=== PATIENT | male | born 1965 | race Caucasian/White ===

== ENCOUNTER 2021-07-06 15:02 | Day surgery (SDCO) | payer OTHER ==
[~2021-07-06] VITALS: Ht 175.3 cm; Wt 115.4 kg
[~2021-07-06 15:02] MED LIST: ACCOLATE20 MG PO; ACTOS45 MG PO; AMITRIPTYLINE 225 MG PO; ASPIRIN CHEWABL81 MG PO; ASPIRIN EC81 MG PO; BACTRIM DS TAB1 EACH PO; BASAGLAR K100 UNIT/1 SC; BIAXIN500 MG PO; BUMEX1 MG PO; BYDUREON P2 MG/0.65 SC; CALCITRATE200 MG PO; CARDIZEM CD120 MG PO; CARTIA XT120 MG PO; CEFDINIR300 MG PO; CLARITIN10 MG PO; COZAAR50 MG PO; CYMBALTA60 MG PO; DULERA 200 MCG8.8 GM INH; DUONEB 2.5-0.5M1 AMP INH; ELIQUIS5 MG PO; FEOSOL325 MG PO; GLIPIZIDE XL10 MG PO; HCTZ12.5 MG PO; HUMALOG100 UNIT/1 SQ; HYDRALAZINE25 MG PO; INSULIN LI100 UNIT/2 SC; LANTUS **100 UNITS/ SC; LASIX40 MG PO; LEVAQUIN500 MG PO; LEVAQUIN750 MG PO; LEVEMIR100 UNIT/1 SQ; LIPITOR20 MG PO; LISINOPRIL 20MG20 MG PO; LOPRESSOR50 MG PO; MAG-OXIDE 400M400 MG PO; METFORMIN HCL500 MG PO; MICRO-K10 MEQ PO; MUCINEX1200 MG PO; NEURONTIN300 MG PO; NEURONTIN400 MG PO; NORCO 5-325 TA1 EACH PO; NORVASC5 MG PO; NYSTATIN SUSP1 ML/ML PO; NYSTATIN SUSP1 ML/ML SSW; OMEPRAZOLE40 MG PO; PEPCID AC20 MG PO; PREDNISONE 20MG20 MG PO; PREDNISONE5 MG PO; PRILOSEC20 MG PO; RIFAMPIN PO; SINGULAIR10 MG PO; SYMBICORT 1601 PUFFS INH; SYMBICORT 80-10.2 GM NEB; TRAZODONE 100M100 MG PO; TRAZODONE 50MG50 MG PO; UROCIT-K10 MEQ PO; VENTOLIN HFA IN18 GM INH; VIBRAMYCIN100 M1 PO; VICODIN 10/3251 EACH PO; XARELTO15 MG PO; ZESTRIL5 MG PO; ZITHROMAX250 MG PO; ZOFRAN8 MG PO
[2021-07-06 16:26] LABS: BASOPHIL 0.3 % (0-2); EOSINOPHIL 1.7 % (0-5); HCT 34.9 % (42.0-52.0); HGB 10.9 g/dl (13.2-18.0); LYMPHOCYTE 16.2 % (15-48); MCH 27.5 pg (25.0-31.0); MCHC 31.2 g/dL (32.0-36.0); MCV 88.1 fL (78.0-100.0); MONOCYTE 9.8 % (0-12); MPV 9.4 fL (6.0-9.5); NEUTROPHIL 71.5 % (41-80); NRBC 0; PLT 315 K/uL (150-400); RBC 3.96 M/uL (4.70-6.00); RDW 13.3 % (11.5-14.0); WBC 12.7 K/uL (4.0-10.5)
[2021-07-06 16:49] LABS: BUN/CREAT RATIO (CALC) 21.1 RATIO; CREATININE 1.9 mg/dL (0.67-1.17); POTASSIUM 4.5 mmol/L (3.5-5.1)
[2021-07-06] MEDS ORDERED: NEURONTIN300 MG PO (22:14)
[2021-07-06] MEDS ORDERED: CYMBALTA 30MG C30 MG PO (22:17)
[2021-07-06] MEDS ORDERED: COLACE100 MG PO (22:18)
[2021-07-07 03:39] LABS: BILIRUBIN NEGATIVE (NEGATIVE); BLOOD TRACE-INTACT Ery/uL (NEGATIVE); CLARITY CLEAR (CLEAR); COLOR YELLOW (YELLOW); GLUCOSE (U) 3+ mg/dL (NORMAL); LEUKOCYTES NEGATIVE Leu/uL (NEGATIVE); NITRITE NEGATIVE (NEGATIVE); PROTEIN 2+ mg/dL (NEGATIVE); SPECIFIC GRAVITY 1.015 (1.001-1.030); UROBILINOGEN 0.2 mg/dL (0.2-1.0); pH 5.5 (5.0-9.0)
[2021-07-07 03:49] LABS: BACTERIA TRACE; URINARY WBC RARE
[2021-07-07 05:27] LABS: BASOPHIL 0 % (0-2); EOSINOPHIL 0 % (0-5); HGB 10.2 g/dl (13.2-18.0); LYMPHOCYTE 10.2 % (15-48); MCH 27.9 pg (25.0-31.0); MCHC 31.9 g/dL (32.0-36.0); MCV 87.7 fL (78.0-100.0); MONOCYTE 3.9 % (0-12); MPV 9.2 fL (6.0-9.5); NEUTROPHIL 85.4 % (41-80); NRBC 0; PLT 275 K/uL (150-400); RBC 3.65 M/uL (4.70-6.00); RDW 13.2 % (11.5-14.0); WBC 7.6 K/uL (4.0-10.5)
[2021-07-07 06:17] LABS: ALBUMIN 2.4 g/dL (3.4-5.0); BILIRUBIN - TOTAL 0.2 mg/dL (0.2-1.0); BUN/CREAT RATIO (CALC) 24.1 RATIO; CREATININE 1.66 mg/dL (0.67-1.17); GLOBULIN (CALCULATION) 5.2 g/dL; MAGNESIUM 2.1 mg/dL (1.8-2.4); PHOSPHORUS 3.1 mg/dL (2.6-4.7); POTASSIUM 4.3 mmol/L (3.5-5.1); TOTAL PROTEIN 7.6 g/dL (6.4-8.2)
[2021-07-07 09:41] LABS: IRON % SATURATION 9.1 %SAT (20-50)
[2021-07-07 09:44] LABS: RETICULOCYTE COUNT 1.4 % (1.0-2.0)
[2021-07-07 10:15] LABS: FOLIC ACID (SERUM) 60.2 ng/mL (8.6-58.9)
--- NOTE | 2021-07-07 11:31 | NUR ---
TRANSFERRED BY WHEELCHAIR TO ROOM 217. REPORT GIVEN TO
--- NOTE | 2021-07-07 17:03 | NUR ---
07/07/21 Mr. Vidal lives at home with his spouse. He has home 02 at 2 , rw, wc, 3in1, and s. chair. Ms. Vidal believes they are knowledgeable of diabetic management and are not in need of diabetic education / support in the community.
[2021-07-08 06:02] LABS: BASOPHIL 0 % (0-2); EOSINOPHIL 0 % (0-5); HGB 10.7 g/dl (13.2-18.0); LYMPHOCYTE 24.9 % (15-48); MCH 27.6 pg (25.0-31.0); MCHC 32.4 g/dL (32.0-36.0); MCV 85.3 fL (78.0-100.0); MPV 9.1 fL (6.0-9.5); NEUTROPHIL 62.8 % (41-80); NRBC 0; PLT 318 K/uL (150-400); RBC 3.87 M/uL (4.70-6.00); RDW 13.2 % (11.5-14.0); WBC 6.8 K/uL (4.0-10.5)
[2021-07-08 06:26] LABS: BUN/CREAT RATIO (CALC) 24.8 RATIO; CREATININE 1.65 mg/dL (0.67-1.17); MAGNESIUM 2.2 mg/dL (1.8-2.4); POTASSIUM 4.1 mmol/L (3.5-5.1)
[2021-07-08] MEDS ORDERED: POLY-IRON150 MG PO (16:24)
[2021-07-08] MEDS ORDERED: ELIQUIS5 MG PO (16:44)
== END 2021-07-08 17:04 | disposition home or self-care (01) ==
LOC: FER 15:02 → FMS 17:27 → FICU 17:27 → FMS 07-07 09:21
PROVIDERS: Internal Medicine; Nurse Practitioner; Nurse Practitioner Family; ADMIT Internal Medicine
DX: U07.1 COVID-19 (principal); J12.82 Pneumonia due to coronavirus disease 2019; J47.0 Bronchiectasis with acute lower respiratory infection; J96.21 Acute and chronic respiratory failure with hypoxia; J96.22 Acute and chronic respiratory failure with hypercapnia; G47.30 Sleep apnea, unspecified; I13.0 Hypertensive heart and chronic kidney disease with heart failure and stage 1 through stage 4 chronic kidney disease, or unspecified chronic kidney disease; E11.22 Type 2 diabetes mellitus with diabetic chronic kidney disease; I50.32 Chronic diastolic (congestive) heart failure; N18.30 Chronic kidney disease, stage 3 unspecified; N17.9 Acute kidney failure, unspecified; D50.9 Iron deficiency anemia, unspecified; I48.91 Unspecified atrial fibrillation; E11.40 Type 2 diabetes mellitus with diabetic neuropathy, unspecified; I82.411 Acute embolism and thrombosis of right femoral vein; E66.9 Obesity, unspecified; Z68.37 Body mass index [BMI] 37.0-37.9, adult; Z86.711 Personal history of pulmonary embolism; Z87.891 Personal history of nicotine dependence; Z79.01 Long term (current) use of anticoagulants; Z79.4 Long term (current) use of insulin; Z79.82 Long term (current) use of aspirin; Z79.899 Other long term (current) drug therapy; Z88.8 Allergy status to other drugs, medicaments and biological substances; Z99.81 Dependence on supplemental oxygen
CPT/HCPCS: 36415; 36600; 71045; 71250; 80048; 80053; 81001; 82607; 82728; 82746; 82803; 82962; 83036; 83540; 83550; 83605; 83615; 83735; 83880; 84100; 84145; 85025; 85379; 86140; 93970; 94010; 94640; 94664; 94667; 94668; C9113; C9399; G0378; J1100; J1815; J7030; J7050; U0002

== ENCOUNTER 2021-09-07 18:24 | Emergency (ER) | payer OTHER ==
[~2021-09-07] VITALS: Ht 175.3 cm; Wt 115.2 kg
[~2021-09-07 18:24] MED LIST changes: +COLACE100 MG PO; +CYMBALTA 30MG C30 MG PO; +POLY-IRON150 MG PO
[2021-09-07 20:35] LABS: BASOPHIL 0.5 % (0-2); EOSINOPHIL 1.1 % (0-5); HCT 30.6 % (42.0-52.0); HGB 9.5 g/dl (13.2-18.0); LYMPHOCYTE 11.4 % (15-48); MCH 28.3 pg (25.0-31.0); MCV 91.1 fL (78.0-100.0); MONOCYTE 8.2 % (0-12); MPV 8.9 fL (6.0-9.5); NEUTROPHIL 78.5 % (41-80); NRBC 0; PLT 411 K/uL (150-400); RBC 3.36 M/uL (4.70-6.00); RDW 13.5 % (11.5-14.0)
[2021-09-07 20:36] LABS: WBC 19.7 K/uL (4.0-10.5)
[2021-09-07 20:55] LABS: INR 1.26 (0.9-1.2); PROTHROMBIN TIME 15.1 SECONDS (11.8-13.4)
[2021-09-07 21:06] LABS: BUN/CREAT RATIO (CALC) 18.7 RATIO; CREATININE 1.93 mg/dL (0.67-1.17); POTASSIUM 5.2 mmol/L (3.5-5.1)
[2021-09-07 21:37] LABS: INFLUENZA A NAA NEGATIVE (NEGATIVE)
[2021-09-07 21:42] LABS: CORONAVIRUS 2019 SARS-COV-2 POSITIVE (NEGATIVE)
== END 2021-09-07 23:05 | disposition other institution (70) ==
LOC: FER 18:24
PROVIDERS: Nurse Practitioner Family
DX: S72.402A Unspecified fracture of lower end of left femur, initial encounter for closed fracture (principal); U07.1 COVID-19; E11.9 Type 2 diabetes mellitus without complications; J44.9 Chronic obstructive pulmonary disease, unspecified; Z88.6 Allergy status to analgesic agent; Z88.8 Allergy status to other drugs, medicaments and biological substances; W01.0XXA Fall on same level from slipping, tripping and stumbling without subsequent striking against object, initial encounter; Y92.009 Unspecified place in unspecified non-institutional (private) residence as the place of occurrence of the external cause
CPT/HCPCS: 36415; 71045; 73552; 73564; 80048; 83605; 84145; 85025; 85610; J1170; J7030; U0002

== ENCOUNTER 2022-01-06 10:55 | Inpatient (IN) | payer OTHER ==
[~2022-01-06] VITALS: Ht 175.3 cm; Wt 128.0 kg
[2022-01-06 12:49] LABS: BASOPHIL 0.2 % (0-2); EOSINOPHIL 0.5 % (0-5); HCT 31.2 % (42.0-52.0); HGB 9.3 g/dl (13.2-18.0); LYMPHOCYTE 5.6 % (15-48); MCH 27.7 pg (25.0-31.0); MCHC 29.8 g/dL (32.0-36.0); MCV 92.9 fL (78.0-100.0); MPV 9.5 fL (6.0-9.5); NEUTROPHIL 85.1 % (41-80); NRBC 0; PLT 268 K/uL (150-400); RBC 3.36 M/uL (4.70-6.00); RDW 14.1 % (11.5-14.0); WBC 17.6 K/uL (4.0-10.5)
[2022-01-06 12:52] LABS: INR 1.21 (0.9-1.2); PROTHROMBIN TIME 14.7 SECONDS (11.8-13.4)
[2022-01-06 12:54] LABS: D-DIMER 1.18 ug/mLFEU (0.00-0.41)
[2022-01-06 13:25] LABS: ALBUMIN 2.5 g/dL (3.4-5.0); ALKALINE PHOSHATASE 179 U/L (46-116); ALT 39 U/L (16-63); AST 20 U/L (15-37); BILIRUBIN - TOTAL 0.4 mg/dL (0.2-1.0); BUN 35 mg/dL (7-18); BUN/CREAT RATIO (CALC) 22.6 RATIO; C-REACTIVE PROTEIN >18.00 mg/dL (<=0.90); CHLORIDE 102 mmol/L (98-107); CO2 (BICARBONATE) 34 mmol/L (21-32); CREATININE 1.55 mg/dL (0.67-1.17); GLUCOSE 175 mg/dL (74-106); MAGNESIUM 2.3 mg/dL (1.8-2.4); POTASSIUM 4.2 mmol/L (3.5-5.1); TOTAL PROTEIN 7.5 g/dL (6.4-8.2)
[2022-01-06 13:34] LABS: LACTIC ACID 0.5 mmol/L (0.4-1.9)
[2022-01-06 13:36] LABS: BILIRUBIN NEGATIVE (NEGATIVE); BLOOD NEGATIVE Ery/uL (NEGATIVE); CLARITY CLEAR (CLEAR); COLOR YELLOW (YELLOW); GLUCOSE (U) 3+ mg/dL (NORMAL); LEUKOCYTES NEGATIVE Leu/uL (NEGATIVE); NITRITE NEGATIVE (NEGATIVE); PROTEIN 2+ mg/dL (NEGATIVE); SPECIFIC GRAVITY 1.025 (1.001-1.030); UROBILINOGEN 0.2 mg/dL (0.2-1.0); pH 5.5 (5.0-9.0)
[2022-01-06 14:14] LABS: AMORPHOUS URATES CRYSTALS TRACE; BACTERIA 1+; MUCOUS TRACE; SQUAMOUS EPITHELIAL CELLS RARE; URINARY RBC RARE
[2022-01-06 14:44] LABS: CORONAVIRUS 2019 SARS-COV-2 NEGATIVE (NEGATIVE); INFLUENZA A NAA NEGATIVE (NEGATIVE)
[2022-01-06] MEDS ORDERED: BROVANA15 MCG/2 M INH (18:18)
[2022-01-06] MEDS ORDERED: PULMICORT0.5 MG/2 M INH (18:18)
[2022-01-06] MEDS ORDERED: FARXIGA5 MG PO (18:19)
[2022-01-06] MEDS ORDERED: MUCINEX600 MG PO (18:21)
[2022-01-06] MEDS ORDERED: MUCINEX 600MG600 MG PO (18:21)
[2022-01-06] MEDS ORDERED: DUONEB 2.5-0.5M1 AMP INH (18:22)
[2022-01-06] MEDS ORDERED: MAG-OXIDE 400M400 MG PO (18:23)
[2022-01-06] MEDS ORDERED: KLOR-CON M 1010 MEQ PO (18:25)
[2022-01-06] MEDS ORDERED: FLOMAX0.4 MG PO (18:26)
[2022-01-06] MEDS ORDERED: VITAMIN D350 MC5 PO (18:27)
[2022-01-07 04:06] LABS: BASOPHIL 0.2 % (0-2); EOSINOPHIL 0.2 % (0-5); HCT 32.9 % (42.0-52.0); HGB 9.7 g/dl (13.2-18.0); LYMPHOCYTE 3.5 % (15-48); MCH 27.3 pg (25.0-31.0); MCHC 29.5 g/dL (32.0-36.0); MCV 92.7 fL (78.0-100.0); MONOCYTE 1.6 % (0-12); MPV 9.5 fL (6.0-9.5); NEUTROPHIL 93.5 % (41-80); NRBC 0; PLT 277 K/uL (150-400); RBC 3.55 M/uL (4.70-6.00); WBC 13.2 K/uL (4.0-10.5)
[2022-01-07 04:44] LABS: BUN 29 mg/dL (7-18); BUN/CREAT RATIO (CALC) 22.3 RATIO; CHLORIDE 103 mmol/L (98-107); CO2 (BICARBONATE) 32 mmol/L (21-32); GLUCOSE 95 mg/dL (74-106); POTASSIUM 4.3 mmol/L (3.5-5.1)
[2022-01-07 04:45] LABS: C-REACTIVE PROTEIN > 18.00 mg/dL (<=0.90)
--- NOTE | 2022-01-07 16:16 | NUR ---
01/07/22 Mr. Vidal is current with [facility]. [facility] has been notified of admission and anticipated DC for 01/08 or 01/09. Pt has portable tanks, 02 at 2 L, Bi-PAP. rw, nishi, s. chair and 3in1.
[2022-01-08 03:36] LABS: BASOPHIL 0.1 % (0-2); EOSINOPHIL 0 % (0-5); HCT 29.7 % (42.0-52.0); HGB 9.1 g/dl (13.2-18.0); LYMPHOCYTE 9.7 % (15-48); MCH 27.1 pg (25.0-31.0); MCHC 30.6 g/dL (32.0-36.0); MONOCYTE 11.3 % (0-12); MPV 9.3 fL (6.0-9.5); NEUTROPHIL 78.4 % (41-80); NRBC 0; PLT 281 K/uL (150-400); RBC 3.36 M/uL (4.70-6.00); RDW 13.7 % (11.5-14.0); WBC 9.3 K/uL (4.0-10.5)
[2022-01-08 03:39] LABS: MCV 88.4 fL (78.0-100.0)
[2022-01-08 04:22] LABS: ALBUMIN 1.9 g/dL (3.4-5.0); BILIRUBIN - TOTAL 0.4 mg/dL (0.2-1.0); BUN/CREAT RATIO (CALC) 22.1 RATIO; CREATININE 1.54 mg/dL (0.67-1.17); GLOBULIN (CALCULATION) 4.8 g/dL; POTASSIUM 4.3 mmol/L (3.5-5.1); TOTAL PROTEIN 6.7 g/dL (6.4-8.2)
[2022-01-08 05:02] LABS: C-REACTIVE PROTEIN 11.8 mg/dL (<=0.90)
[2022-01-09 07:00] LABS: BASOPHIL 0.2 % (0-2); EOSINOPHIL 0.4 % (0-5); HCT 31.3 % (42.0-52.0); HGB 9.7 g/dl (13.2-18.0); LYMPHOCYTE 18.5 % (15-48); MCH 27.2 pg (25.0-31.0); MCV 87.9 fL (78.0-100.0); MONOCYTE 10.1 % (0-12); MPV 8.5 fL (6.0-9.5); NEUTROPHIL 70.4 % (41-80); NRBC 0; PLT 255 K/uL (150-400); RBC 3.56 M/uL (4.70-6.00); RDW 13.6 % (11.5-14.0); WBC 11.2 K/uL (4.0-10.5)
[2022-01-09 07:30] LABS: BUN/CREAT RATIO (CALC) 21.7 RATIO; CREATININE 1.66 mg/dL (0.67-1.17); POTASSIUM 4.3 mmol/L (3.5-5.1)
[2022-01-10 06:24] LABS: BASOPHIL 0.1 % (0-2); EOSINOPHIL 0.3 % (0-5); HCT 33.9 % (42.0-52.0); HGB 10.4 g/dl (13.2-18.0); LYMPHOCYTE 13.4 % (15-48); MCH 26.9 pg (25.0-31.0); MCHC 30.7 g/dL (32.0-36.0); MCV 87.6 fL (78.0-100.0); MONOCYTE 10.1 % (0-12); MPV 9.1 fL (6.0-9.5); NEUTROPHIL 75.7 % (41-80); NRBC 0; PLT 297 K/uL (150-400); RBC 3.87 M/uL (4.70-6.00); RDW 13.6 % (11.5-14.0); WBC 10.8 K/uL (4.0-10.5)
[2022-01-10 07:06] LABS: BUN/CREAT RATIO (CALC) 22.2 RATIO; CREATININE 1.67 mg/dL (0.67-1.17); POTASSIUM 4.3 mmol/L (3.5-5.1)
[2022-01-10] MEDS ORDERED: AZITHROMYCIN250 MG PO (08:00)
[2022-01-10] MEDS ORDERED: LASIX40 MG PO (08:00)
[2022-01-10] MEDS ORDERED: ELIQUIS5 MG PO (08:00)
[2022-01-10] MEDS ORDERED: COZAAR50 MG PO (08:00)
[2022-01-10] MEDS ORDERED: PREDNISONE 20MG20 MG PO (08:02)
== END 2022-01-10 10:25 | disposition home health service (06) | DRG 291 ==
LOC: FER 10:55 → FTCU 15:32 → FMS 01-08 09:04
PROVIDERS: Emergency Medicine; ADMIT Allergy & Immunology Allergy
PROC: 5A09357 Assistance with Respiratory Ventilation, Less than 24 Consecutive Hours, Continuous Positive Airway Pressure (ICD-10-PCS; principal; 2022-01-06)
PROC: 5A09357 Assistance with Respiratory Ventilation, Less than 24 Consecutive Hours, Continuous Positive Airway Pressure (ICD-10-PCS; 2022-01-07)
PROC: 5A09357 Assistance with Respiratory Ventilation, Less than 24 Consecutive Hours, Continuous Positive Airway Pressure (ICD-10-PCS; 2022-01-08)
PROC: 5A09357 Assistance with Respiratory Ventilation, Less than 24 Consecutive Hours, Continuous Positive Airway Pressure (ICD-10-PCS; 2022-01-09)
DX: I13.0 Hypertensive heart and chronic kidney disease with heart failure and stage 1 through stage 4 chronic kidney disease, or unspecified chronic kidney disease (principal); I50.33 Acute on chronic diastolic (congestive) heart failure; J96.21 Acute and chronic respiratory failure with hypoxia; J96.22 Acute and chronic respiratory failure with hypercapnia; J44.1 Chronic obstructive pulmonary disease with (acute) exacerbation; E66.2 Morbid (severe) obesity with alveolar hypoventilation; Z68.41 Body mass index [BMI] 40.0-44.9, adult; Z20.822 Contact with and (suspected) exposure to COVID-19; E11.22 Type 2 diabetes mellitus with diabetic chronic kidney disease; N18.9 Chronic kidney disease, unspecified; I48.91 Unspecified atrial fibrillation; E11.40 Type 2 diabetes mellitus with diabetic neuropathy, unspecified; Z28.310 Unvaccinated for COVID-19; Z99.81 Dependence on supplemental oxygen; Z86.16 Personal history of COVID-19; Z79.01 Long term (current) use of anticoagulants; Z86.711 Personal history of pulmonary embolism; Z79.82 Long term (current) use of aspirin; Z79.899 Other long term (current) drug therapy; Z90.49 Acquired absence of other specified parts of digestive tract; Z98.41 Cataract extraction status, right eye; Z98.42 Cataract extraction status, left eye; Z98.890 Other specified postprocedural states; Z79.4 Long term (current) use of insulin; Z87.891 Personal history of nicotine dependence
CPT/HCPCS: 36415; 36600; 71250; 80048; 80053; 81001; 82728; 82803; 82962; 83605; 83735; 83880; 84145; 84484; 85025; 85379; 85610; 86140; 87040; 93005; 94010; 94640; 94660; 94760; 94762; 96365; 96368; 96375; A4216; J1642; J1815; J2020; J2543; J2920; J7030; J7512; U0002

== ENCOUNTER 2022-01-17 10:34 | Inpatient (IN) | payer OTHER ==
[~2022-01-17] VITALS: Ht 175.3 cm; Wt 129.0 kg
[~2022-01-17 10:34] MED LIST changes: +AZITHROMYCIN250 MG PO; +BROVANA15 MCG/2 M INH; +FARXIGA5 MG PO; +FLOMAX0.4 MG PO; +KLOR-CON M 1010 MEQ PO; +MUCINEX 600MG600 MG PO; +MUCINEX600 MG PO; +PULMICORT0.5 MG/2 M INH; +VITAMIN D350 MC5 PO
[2022-01-17 12:00] LABS: BASOPHIL 0.2 % (0-2); EOSINOPHIL 0.6 % (0-5); HCT 31.8 % (42.0-52.0); HGB 9.4 g/dl (13.2-18.0); MCH 27.2 pg (25.0-31.0); MCHC 29.6 g/dL (32.0-36.0); MONOCYTE 7.8 % (0-12); MPV 9.3 fL (6.0-9.5); NRBC 0; PLT 373 K/uL (150-400); RBC 3.45 M/uL (4.70-6.00); RDW 14.4 % (11.5-14.0); WBC 14.9 K/uL (4.0-10.5)
[2022-01-17 12:01] LABS: ALBUMIN 2.5 g/dL (3.4-5.0); BILIRUBIN - TOTAL 0.2 mg/dL (0.2-1.0); BUN/CREAT RATIO (CALC) 25.8 RATIO; CREATININE 1.98 mg/dL (0.67-1.17); GLOBULIN (CALCULATION) 4.4 g/dL; MAGNESIUM 2.2 mg/dL (1.8-2.4); POTASSIUM 5.2 mmol/L (3.5-5.1); TOTAL PROTEIN 6.9 g/dL (6.4-8.2)
[2022-01-17 12:04] LABS: INR 1.07 (0.9-1.2); MCV 92.2 fL (78.0-100.0); PROTHROMBIN TIME 13.3 SECONDS (11.8-13.4)
[2022-01-17 13:42] LABS: INFLUENZA A NAA NEGATIVE (NEGATIVE)
[2022-01-17 13:54] LABS: CORONAVIRUS 2019 SARS-COV-2 POSITIVE (NEGATIVE)
[2022-01-17 15:54] LABS: BILIRUBIN NEGATIVE (NEGATIVE); BLOOD NEGATIVE Ery/uL (NEGATIVE); COLOR YELLOW (YELLOW); GLUCOSE (U) 3+ mg/dL (NORMAL); LEUKOCYTES NEGATIVE Leu/uL (NEGATIVE); NITRITE NEGATIVE (NEGATIVE); PROTEIN 1+ mg/dL (NEGATIVE); SPECIFIC GRAVITY 1.015 (1.001-1.030); UROBILINOGEN 0.2 mg/dL (0.2-1.0)
[2022-01-17 15:55] LABS: CLARITY SLIGHTLY HAZY (CLEAR)
[2022-01-17 16:07] LABS: YEAST PRESENT
[2022-01-17] MEDS ORDERED: ADALAT CC30 MG PO (18:23)
[2022-01-17] MEDS ORDERED: BACTROBAN NASAL1 GM (18:24)
[2022-01-18 03:50] LABS: BASOPHIL 0.2 % (0-2); EOSINOPHIL 0 % (0-5); HCT 30.2 % (42.0-52.0); HGB 9.3 g/dl (13.2-18.0); LYMPHOCYTE 6.6 % (15-48); MCH 27.2 pg (25.0-31.0); MCHC 30.8 g/dL (32.0-36.0); MCV 88.3 fL (78.0-100.0); MONOCYTE 3.9 % (0-12); MPV 9.1 fL (6.0-9.5); NEUTROPHIL 87.4 % (41-80); NRBC 0; PLT 392 K/uL (150-400); RBC 3.42 M/uL (4.70-6.00); RDW 14.1 % (11.5-14.0); WBC 11.1 K/uL (4.0-10.5)
[2022-01-18 04:12] LABS: IRON % SATURATION 14.8 %SAT (20-50)
[2022-01-18 04:38] LABS: BUN/CREAT RATIO (CALC) 30.4 RATIO; C-REACTIVE PROTEIN 6.2 mg/dL (<=0.90); CREATININE 1.71 mg/dL (0.67-1.17); POTASSIUM 4.8 mmol/L (3.5-5.1)
[2022-01-18 14:39] LABS: URINE CREATININE 11.96 mg/dL (29.00-226.00); URINE TOTAL PROTEIN-RANDOM 86.5 mg/dL (<11.9)
[2022-01-19 08:52] LABS: BUN/CREAT RATIO (CALC) 29.9 RATIO; CREATININE 1.54 mg/dL (0.67-1.17); MAGNESIUM 2.2 mg/dL (1.8-2.4); PHOSPHORUS 4.2 mg/dL (2.6-4.7); POTASSIUM 5.2 mmol/L (3.5-5.1)
[2022-01-20 06:41] LABS: BASOPHIL 0.3 % (0-2); EOSINOPHIL 0.2 % (0-5); HCT 29.2 % (42.0-52.0); LYMPHOCYTE 14.9 % (15-48); MCH 27.4 pg (25.0-31.0); MCHC 30.8 g/dL (32.0-36.0); MCV 88.8 fL (78.0-100.0); MONOCYTE 11.5 % (0-12); MPV 9.1 fL (6.0-9.5); NEUTROPHIL 69.9 % (41-80); NRBC 0; PLT 441 K/uL (150-400); RBC 3.29 M/uL (4.70-6.00); RDW 14.6 % (11.5-14.0); WBC 11.8 K/uL (4.0-10.5)
[2022-01-20 06:57] LABS: BUN/CREAT RATIO (CALC) 24.9 RATIO; CREATININE 2.05 mg/dL (0.67-1.17); POTASSIUM 4.8 mmol/L (3.5-5.1)
[2022-01-20] MEDS ORDERED: LASIX40 MG PO (16:34)
[2022-01-20] MEDS ORDERED: CEFDINIR300 MG PO (16:34)
[2022-01-20] MEDS ORDERED: FOLIC ACID1 MG PO (16:34)
[2022-01-20] MEDS ORDERED: PREDNISONE 20MG20 MG PO (16:34)
[2022-01-20] MEDS ORDERED: SINGULAIR10 MG PO (16:38)
[2022-01-20] MEDS ORDERED: PROSCAR5 MG PO (16:38)
[2022-01-20] MEDS ORDERED: FLOMAX0.4 MG PO (16:58)
== END 2022-01-20 17:20 | disposition home health service (06) | DRG 291 ==
LOC: FER 10:34 → FTCU 14:41
PROVIDERS: Emergency Medicine; Internal Medicine; Internal Medicine Nephrology; ADMIT Family Medicine
PROC: 8E0ZXY6 Isolation (ICD-10-PCS; principal; 2022-01-17)
PROC: 0T9B70Z Drainage of Bladder with Drainage Device, Via Natural or Artificial Opening (ICD-10-PCS; 2022-01-17)
PROC: 5A09357 Assistance with Respiratory Ventilation, Less than 24 Consecutive Hours, Continuous Positive Airway Pressure (ICD-10-PCS; 2022-01-17)
PROC: B24BZZZ Ultrasonography of Heart with Aorta (ICD-10-PCS; 2022-01-18)
PROC: 5A09357 Assistance with Respiratory Ventilation, Less than 24 Consecutive Hours, Continuous Positive Airway Pressure (ICD-10-PCS; 2022-01-19)
PROC: 5A09357 Assistance with Respiratory Ventilation, Less than 24 Consecutive Hours, Continuous Positive Airway Pressure (ICD-10-PCS; 2022-01-20)
DX: I13.0 Hypertensive heart and chronic kidney disease with heart failure and stage 1 through stage 4 chronic kidney disease, or unspecified chronic kidney disease (principal); I50.33 Acute on chronic diastolic (congestive) heart failure; J96.21 Acute and chronic respiratory failure with hypoxia; J96.22 Acute and chronic respiratory failure with hypercapnia; U07.1 COVID-19; J44.1 Chronic obstructive pulmonary disease with (acute) exacerbation; N17.9 Acute kidney failure, unspecified; I48.20 Chronic atrial fibrillation, unspecified; J44.0 Chronic obstructive pulmonary disease with (acute) lower respiratory infection; E11.22 Type 2 diabetes mellitus with diabetic chronic kidney disease; N18.30 Chronic kidney disease, stage 3 unspecified; E11.65 Type 2 diabetes mellitus with hyperglycemia; G47.33 Obstructive sleep apnea (adult) (pediatric); E87.5 Hyperkalemia; J20.9 Acute bronchitis, unspecified; E11.40 Type 2 diabetes mellitus with diabetic neuropathy, unspecified; D50.9 Iron deficiency anemia, unspecified; R33.9 Retention of urine, unspecified; R82.998 Other abnormal findings in urine; Z28.310 Unvaccinated for COVID-19; Z98.41 Cataract extraction status, right eye; Z86.711 Personal history of pulmonary embolism; Z79.01 Long term (current) use of anticoagulants; Z91.14 Patient's other noncompliance with medication regimen; Z99.81 Dependence on supplemental oxygen; Z98.42 Cataract extraction status, left eye; Z90.49 Acquired absence of other specified parts of digestive tract; Z98.890 Other specified postprocedural states; Z79.4 Long term (current) use of insulin; Z79.82 Long term (current) use of aspirin; Z79.899 Other long term (current) drug therapy; Z87.891 Personal history of nicotine dependence
CPT/HCPCS: 36415; 36600; 71045; 76770; 80048; 80053; 81001; 82570; 82607; 82803; 82962; 83036; 83540; 83550; 83735; 83880; 84100; 84145; 84156; 84484; 85025; 85610; 85730; 86140; 87040; 93005; 94010; 94640; 94660; 97110; 97162; 97166; J1815; J1940; J2916; J2930; J7512; U0002

== ENCOUNTER 2022-02-09 18:14 | Inpatient (IN) | payer OTHER ==
[~2022-02-09] VITALS: Ht 175.3 cm; Wt 132.0 kg
[~2022-02-09 18:14] MED LIST changes: +ADALAT CC30 MG PO; +BACTROBAN NASAL1 GM; +FOLIC ACID1 MG PO; +PROSCAR5 MG PO
[2022-02-09 19:20] LABS: BASOPHIL 0.5 % (0-2); EOSINOPHIL 2.2 % (0-5); HGB 8.5 g/dl (13.2-18.0); LYMPHOCYTE 22.3 % (15-48); MCH 27.5 pg (25.0-31.0); MCHC 31.5 g/dL (32.0-36.0); MCV 87.4 fL (78.0-100.0); MONOCYTE 12.5 % (0-12); MPV 9.2 fL (6.0-9.5); NEUTROPHIL 60.6 % (41-80); NRBC 0.1; PLT 329 K/uL (150-400); RBC 3.09 M/uL (4.70-6.00); RDW 14.8 % (11.5-14.0); WBC 14.2 K/uL (4.0-10.5)
[2022-02-09 19:31] LABS: ALBUMIN 2.6 g/dL (3.4-5.0); BILIRUBIN - TOTAL 0.3 mg/dL (0.2-1.0); BUN/CREAT RATIO (CALC) 19.7 RATIO; CREATININE 2.39 mg/dL (0.67-1.17); GLOBULIN (CALCULATION) 4.9 g/dL; TOTAL PROTEIN 7.5 g/dL (6.4-8.2)
[2022-02-09 19:55] LABS: LACTIC ACID 1.6 mmol/L (0.4-1.9)
[2022-02-09 21:09] LABS: CORONAVIRUS 2019 SARS-COV-2 NEGATIVE (NEGATIVE); INFLUENZA A NAA NEGATIVE (NEGATIVE)
[2022-02-10] MEDS ORDERED: ADALAT CC30 MG PO (01:03)
[2022-02-10] MEDS ORDERED: MIRALAX17 GM PO (01:04)
[2022-02-10] MEDS ORDERED: SENNA-S 8.6-501 EACH PO (01:05)
[2022-02-10] MEDS ORDERED: ACETAMINOPHEN500 M1 PO (01:06)
[2022-02-10 02:06] LABS: BILIRUBIN NEGATIVE (NEGATIVE); BLOOD 2+ Ery/uL (NEGATIVE); CLARITY CLOUDY (CLEAR); COLOR YELLOW (YELLOW); GLUCOSE (U) 3+ mg/dL (NORMAL); LEUKOCYTES 1+ Leu/uL (NEGATIVE); NITRITE NEGATIVE (NEGATIVE); PROTEIN 2+ mg/dL (NEGATIVE); SPECIFIC GRAVITY 1.025 (1.001-1.030); UROBILINOGEN 0.2 mg/dL (0.2-1.0); pH 5.5 (5.0-9.0)
[2022-02-10 02:13] LABS: AMORPHOUS URATES CRYSTALS TRACE; BACTERIA 2+; GRANULAR CASTS TRACE; YEAST PRESENT
[2022-02-10 06:47] LABS: BASOPHIL 0.3 % (0-2); EOSINOPHIL 0 % (0-5); HGB 8.1 g/dl (13.2-18.0); LYMPHOCYTE 3.8 % (15-48); MCH 27.7 pg (25.0-31.0); MCHC 31.2 g/dL (32.0-36.0); MONOCYTE 1.5 % (0-12); MPV 9.4 fL (6.0-9.5); NEUTROPHIL 93.5 % (41-80); NRBC 0; PLT 334 K/uL (150-400); RBC 2.92 M/uL (4.70-6.00); RETICULOCYTE COUNT 2.8 % (1.0-2.0)
[2022-02-10 07:01] LABS: IRON % SATURATION 9.3 %SAT (20-50)
[2022-02-10 07:25] LABS: BUN/CREAT RATIO (CALC) 22.4 RATIO; C-REACTIVE PROTEIN 10.2 mg/dL (<=0.90); CREATININE 2.37 mg/dL (0.67-1.17); MAGNESIUM 2.7 mg/dL (1.8-2.4)
--- NOTE | 2022-02-10 14:02 | NUR ---
02/10 Mr. Vidal was admitted from [facility]. He wishes to return home with his spouse and son (disabled). He has 02 at 2 L, portable, C_PAP, rw, 3in1, s. chair and wc. A referral was made to [facility] per pt request. - Please notify [facility] at [phone] if patient discharges over the weekend.
[2022-02-11 06:20] LABS: BASOPHIL 0.1 % (0-2); EOSINOPHIL 0 % (0-5); HCT 26.2 % (42.0-52.0); HGB 8.3 g/dl (13.2-18.0); LYMPHOCYTE 6.1 % (15-48); MCH 27.5 pg (25.0-31.0); MCHC 31.7 g/dL (32.0-36.0); MCV 86.8 fL (78.0-100.0); MONOCYTE 6.2 % (0-12); NEUTROPHIL 86.7 % (41-80); NRBC 0; PLT 372 K/uL (150-400); RBC 3.02 M/uL (4.70-6.00); RDW 15.4 % (11.5-14.0); WBC 14.9 K/uL (4.0-10.5)
[2022-02-11 06:41] LABS: BUN/CREAT RATIO (CALC) 24.6 RATIO; CREATININE 2.24 mg/dL (0.67-1.17); POTASSIUM 4.6 mmol/L (3.5-5.1)
[2022-02-12 03:51] LABS: BASOPHIL 0.2 % (0-2); EOSINOPHIL 0.2 % (0-5); HCT 25.8 % (42.0-52.0); HGB 8.1 g/dl (13.2-18.0); LYMPHOCYTE 9.6 % (15-48); MCH 27.6 pg (25.0-31.0); MCHC 31.4 g/dL (32.0-36.0); MCV 88.1 fL (78.0-100.0); MONOCYTE 9.3 % (0-12); MPV 8.4 fL (6.0-9.5); NEUTROPHIL 78.9 % (41-80); NRBC 0.2; PLT 351 K/uL (150-400); RBC 2.93 M/uL (4.70-6.00); RDW 15.2 % (11.5-14.0); WBC 12.5 K/uL (4.0-10.5)
[2022-02-12 04:10] LABS: BUN/CREAT RATIO (CALC) 29.8 RATIO; CREATININE 2.18 mg/dL (0.67-1.17); POTASSIUM 3.8 mmol/L (3.5-5.1)
[2022-02-13 03:48] LABS: BASOPHIL 0.3 % (0-2); EOSINOPHIL 0.5 % (0-5); HCT 27.5 % (42.0-52.0); HGB 8.5 g/dl (13.2-18.0); LYMPHOCYTE 13.4 % (15-48); MCH 27.5 pg (25.0-31.0); MCHC 30.9 g/dL (32.0-36.0); MPV 8.7 fL (6.0-9.5); NEUTROPHIL 71.9 % (41-80); NRBC 0.2; PLT 388 K/uL (150-400); RBC 3.09 M/uL (4.70-6.00); RDW 15.3 % (11.5-14.0); WBC 12.5 K/uL (4.0-10.5)
[2022-02-13 04:06] LABS: BUN/CREAT RATIO (CALC) 31.4 RATIO; CREATININE 2.04 mg/dL (0.67-1.17); POTASSIUM 4.2 mmol/L (3.5-5.1)
[2022-02-14 06:12] LABS: BUN/CREAT RATIO (CALC) 29.1 RATIO; CREATININE 1.82 mg/dL (0.67-1.17); POTASSIUM 4.6 mmol/L (3.5-5.1)
[2022-02-14 06:16] LABS: BASOPHIL 0.3 % (0-2); HCT 29.3 % (42.0-52.0); MCH 27.8 pg (25.0-31.0); MCHC 30.7 g/dL (32.0-36.0); MCV 90.4 fL (78.0-100.0); MONOCYTE 9.5 % (0-12); MPV 9.1 fL (6.0-9.5); NEUTROPHIL 66.3 % (41-80); NRBC 0.4; PLT 425 K/uL (150-400); RBC 3.24 M/uL (4.70-6.00); RDW 15.5 % (11.5-14.0); WBC 11.7 K/uL (4.0-10.5)
[2022-02-15 05:57] LABS: BASOPHIL 0.4 % (0-2); EOSINOPHIL 0.8 % (0-5); HCT 30.6 % (42.0-52.0); HGB 9.4 g/dl (13.2-18.0); LYMPHOCYTE 20.3 % (15-48); MCH 27.4 pg (25.0-31.0); MCHC 30.7 g/dL (32.0-36.0); MCV 89.2 fL (78.0-100.0); MONOCYTE 8.4 % (0-12); NEUTROPHIL 65.4 % (41-80); NRBC 0.5; PLT 429 K/uL (150-400); RBC 3.43 M/uL (4.70-6.00); RDW 15.5 % (11.5-14.0); WBC 14.1 K/uL (4.0-10.5)
[2022-02-15 06:24] LABS: BUN/CREAT RATIO (CALC) 36.2 RATIO; CREATININE 1.49 mg/dL (0.67-1.17); POTASSIUM 4.3 mmol/L (3.5-5.1)
[2022-02-15] MEDS ORDERED: BACTRIM DS TAB1 EACH PO (08:46)
[2022-02-15] MEDS ORDERED: BUMETANIDE1 MG PO (08:46)
[2022-02-15] MEDS ORDERED: FLORANEX TABLE1 EACH PO (08:46)
--- NOTE | 2022-02-15 12:36 | NUR ---
02/15 [facility] was notified of discharge.
== END 2022-02-15 13:17 | disposition home or self-care (01) | DRG 871 ==
LOC: FER 18:14 → FTCU 21:57
PROVIDERS: Emergency Medicine; Family Medicine; Internal Medicine Cardiovascular Disease; Nurse Practitioner Acute Care; ADMIT Internal Medicine
PROC: 3E03329 Introduction of Other Anti-infective into Peripheral Vein, Percutaneous Approach (ICD-10-PCS; 2022-02-09)
PROC: 0T9B70Z Drainage of Bladder with Drainage Device, Via Natural or Artificial Opening (ICD-10-PCS; 2022-02-09)
PROC: 5A09357 Assistance with Respiratory Ventilation, Less than 24 Consecutive Hours, Continuous Positive Airway Pressure (ICD-10-PCS; principal; 2022-02-10)
PROC: 5A09357 Assistance with Respiratory Ventilation, Less than 24 Consecutive Hours, Continuous Positive Airway Pressure (ICD-10-PCS; 2022-02-11)
PROC: 5A09357 Assistance with Respiratory Ventilation, Less than 24 Consecutive Hours, Continuous Positive Airway Pressure (ICD-10-PCS; 2022-02-13)
PROC: 5A09357 Assistance with Respiratory Ventilation, Less than 24 Consecutive Hours, Continuous Positive Airway Pressure (ICD-10-PCS; 2022-02-14)
DX: A41.9 Sepsis, unspecified organism (principal); J15.1 Pneumonia due to Pseudomonas; J96.21 Acute and chronic respiratory failure with hypoxia; I50.33 Acute on chronic diastolic (congestive) heart failure; J44.1 Chronic obstructive pulmonary disease with (acute) exacerbation; J44.0 Chronic obstructive pulmonary disease with (acute) lower respiratory infection; N17.9 Acute kidney failure, unspecified; N30.00 Acute cystitis without hematuria; E87.1 Hypo-osmolality and hyponatremia; I13.0 Hypertensive heart and chronic kidney disease with heart failure and stage 1 through stage 4 chronic kidney disease, or unspecified chronic kidney disease; Z68.41 Body mass index [BMI] 40.0-44.9, adult; E66.2 Morbid (severe) obesity with alveolar hypoventilation; N13.8 Other obstructive and reflux uropathy; R65.20 Severe sepsis without septic shock; Z20.822 Contact with and (suspected) exposure to COVID-19; N18.30 Chronic kidney disease, stage 3 unspecified; N41.9 Inflammatory disease of prostate, unspecified; N40.1 Benign prostatic hyperplasia with lower urinary tract symptoms; E11.22 Type 2 diabetes mellitus with diabetic chronic kidney disease; D63.1 Anemia in chronic kidney disease; F32.A Depression, unspecified; F41.9 Anxiety disorder, unspecified; E11.40 Type 2 diabetes mellitus with diabetic neuropathy, unspecified; E11.65 Type 2 diabetes mellitus with hyperglycemia; I48.0 Paroxysmal atrial fibrillation; T38.0X5A Adverse effect of glucocorticoids and synthetic analogues, initial encounter; Z79.4 Long term (current) use of insulin; Z90.49 Acquired absence of other specified parts of digestive tract; Z98.890 Other specified postprocedural states; Z87.891 Personal history of nicotine dependence; Z82.49 Family history of ischemic heart disease and other diseases of the circulatory system; Z83.3 Family history of diabetes mellitus; Z79.82 Long term (current) use of aspirin; Z79.899 Other long term (current) drug therapy; Z86.711 Personal history of pulmonary embolism; Z79.01 Long term (current) use of anticoagulants; Z99.81 Dependence on supplemental oxygen; Z98.41 Cataract extraction status, right eye; Z98.42 Cataract extraction status, left eye
CPT/HCPCS: 36415; 36600; 71045; 71250; 80048; 80053; 80202; 81001; 82728; 82803; 82962; 83540; 83550; 83605; 83735; 83880; 84145; 84484; 85025; 86140; 87040; 87070; 87077; 87088; 87186; 87205; 93005; 93971; 94640; 94660; 94664; 94667; 94668; 94760; 94762; 96365; 96375; 97162; 97166; 97530; 97530-GP; J0692; J1815; J1940; J2930; J3010; J3370; J7040; J7512; U0002

== ENCOUNTER → 2022-03-24 | Day surgery (SDC) | payer OTHER ==
[~2022-03-24] VITALS: Ht 175.3 cm; Wt 122.5 kg
[~2022-03-24] MED LIST changes: +ACETAMINOPHEN500 M1 PO; +BUMETANIDE1 MG PO; +BUMETANIDE2 MG PO; +FLORANEX TABLE1 EACH PO; +MIRALAX17 GM PO; +SENNA-S 8.6-501 EACH PO
[2022-03-24 12:02] LABS: HCT 32.8 % (42.0-52.0); HGB 10.4 g/dl (13.2-18.0); MCH 28.2 pg (25.0-31.0); MCHC 31.7 g/dL (32.0-36.0); MCV 88.9 fL (78.0-100.0); MPV 9.4 fL (6.0-9.5); RBC 3.69 M/uL (4.70-6.00); WBC 15.8 K/uL (4.0-10.5)
[2022-03-24 12:34] LABS: ALBUMIN 2.8 g/dL (3.4-5.0); BILIRUBIN - TOTAL 0.3 mg/dL (0.2-1.0); CREATININE 1.46 mg/dL (0.67-1.17); GLOBULIN (CALCULATION) 5.2 g/dL; POTASSIUM 4.1 mmol/L (3.5-5.1)
== END | disposition home or self-care (01) ==
LOC: FAS 11:09
PROVIDERS: Surgery
DX: I87.2 Venous insufficiency (chronic) (peripheral) (principal); I48.91 Unspecified atrial fibrillation; E78.5 Hyperlipidemia, unspecified; J44.9 Chronic obstructive pulmonary disease, unspecified; I13.0 Hypertensive heart and chronic kidney disease with heart failure and stage 1 through stage 4 chronic kidney disease, or unspecified chronic kidney disease; E10.22 Type 1 diabetes mellitus with diabetic chronic kidney disease; N18.9 Chronic kidney disease, unspecified; I50.9 Heart failure, unspecified; Z79.01 Long term (current) use of anticoagulants; Z79.82 Long term (current) use of aspirin
CPT/HCPCS: 36415; 71045; 76000; 80053; C1788; J0690; J1644; J2250; J2704; J3010; J7120

== ENCOUNTER 2022-05-25 09:29 | Day surgery (SDCO) | payer OTHER ==
[~2022-05-25] VITALS: Ht 175.3 cm; Wt 126.7 kg
[2022-05-25 17:00] LABS: HCT 32.4 % (42.0-52.0); HGB 10.1 g/dl (13.2-18.0); MCH 27.7 pg (25.0-31.0); MCHC 31.2 g/dL (32.0-36.0); MPV 8.5 fL (6.0-9.5); RBC 3.64 M/uL (4.70-6.00); RDW 12.9 % (11.5-14.0); WBC 9.5 K/uL (4.0-10.5)
[2022-05-25 17:33] LABS: ALBUMIN 2.6 g/dL (3.4-5.0); BILIRUBIN - TOTAL 0.3 mg/dL (0.2-1.0); BUN/CREAT RATIO (CALC) 16.2 RATIO; CREATININE 1.6 mg/dL (0.67-1.17); GLOBULIN (CALCULATION) 4.8 g/dL; POTASSIUM 3.7 mmol/L (3.5-5.1); TOTAL PROTEIN 7.4 g/dL (6.4-8.2)
--- NOTE | 2022-05-25 18:29 | NUR ---
DR. VARGHESE WAS CALLED AND SAID TO ANK F/C AND NO F/S PER DOCTOR,
[2022-05-25 18:32] LABS: BILIRUBIN NEGATIVE (NEGATIVE); BLOOD NEGATIVE Ery/uL (NEGATIVE); CLARITY CLEAR (CLEAR); COLOR YELLOW (YELLOW); GLUCOSE (U) 3+ mg/dL (NORMAL); LEUKOCYTES NEGATIVE Leu/uL (NEGATIVE); NITRITE NEGATIVE (NEGATIVE); PROTEIN 2+ mg/dL (NEGATIVE); UROBILINOGEN 0.2 mg/dL (0.2-1.0); pH 6.5 (5.0-9.0)
--- NOTE | 2022-05-26 13:45 | NUR ---
PT BACK AT 12:30 FROM EGD AND COLONOSCOPY. IN GOOD CONDITION WITH NO C/O PAIN. ORDERS TO D/C PT TO HOME. PT STATED THAT HE WOULD TAKE HIS MEDS WHEN HE GET HOME.
== END 2022-05-26 14:25 | disposition home or self-care (01) ==
LOC: FMS 09:29
PROVIDERS: ADMIT Surgery
DX: D12.3 Benign neoplasm of transverse colon (principal); K21.00 Gastro-esophageal reflux disease with esophagitis, without bleeding; K31.9 Disease of stomach and duodenum, unspecified; D64.9 Anemia, unspecified; Z20.822 Contact with and (suspected) exposure to COVID-19; I48.91 Unspecified atrial fibrillation; I13.0 Hypertensive heart and chronic kidney disease with heart failure and stage 1 through stage 4 chronic kidney disease, or unspecified chronic kidney disease; E10.22 Type 1 diabetes mellitus with diabetic chronic kidney disease; I50.9 Heart failure, unspecified; N18.9 Chronic kidney disease, unspecified; E78.5 Hyperlipidemia, unspecified; J44.9 Chronic obstructive pulmonary disease, unspecified; Z79.01 Long term (current) use of anticoagulants; Z79.82 Long term (current) use of aspirin; Z79.899 Other long term (current) drug therapy
CPT/HCPCS: 36415; 80053; 81003; 94640; 94760; G0378; J1610; J2370; J2704; J7120; U0002